=== PATIENT | male | born 1970 | race Caucasian/White ===

== ENCOUNTER 2024-06-06 06:28 | Day surgery (SDC) | payer OTHER, SELFPAY ==
[2024-06-06] VITALS (7 sets, daily range): BP systolic 96–107; BP diastolic 65–77; BMI 27.9
== END 2024-06-06 13:00 | disposition home or self-care (01) ==
LOC: SDS 06:28
PROVIDERS: ATTENDING PHYSICIAN Urology; FAMILY PHYSICIAN Family Medicine
DX: Z45.42 Encounter for adjustment and management of neurostimulator (principal); R15.9 Full incontinence of feces
CPT/HCPCS: 64595; 64585; 72170; 76000

== ENCOUNTER → 2024-08-26 09:37 | Outpatient (REF) | payer OTHER, SELFPAY | LOC: RAD 09:37 | PROVIDERS: ATTENDING PHYSICIAN Physical Medicine & Rehabilitation | DX: M54.12 Radiculopathy, cervical region (principal) | CPT/HCPCS: 72052 ==

== ENCOUNTER → 2024-11-07 07:45 | Outpatient (REF) | payer OTHER, SELFPAY | LOC: RAD 07:45 | DX: M54.12 Radiculopathy, cervical region (principal); Z98.1 Arthrodesis status | CPT/HCPCS: 72040 ==

== ENCOUNTER → 2025-02-16 15:29 | Outpatient (REF) | payer OTHER, SELFPAY | LOC: RAD 15:29 | PROVIDERS: ATTENDING PHYSICIAN Orthopaedic Surgery; FAMILY PHYSICIAN Family Medicine | DX: M54.12 Radiculopathy, cervical region (principal) | CPT/HCPCS: 72040 ==

== ENCOUNTER → 2025-04-14 08:15 | Outpatient (REF) | payer OTHER, SELFPAY | LOC: RCS 08:15 | PROVIDERS: ATTENDING PHYSICIAN Internal Medicine Interventional Cardiology; FAMILY PHYSICIAN Family Medicine | DX: R93.1 Abnormal findings on diagnostic imaging of heart and coronary circulation (principal); R06.09 Other forms of dyspnea | CPT/HCPCS: 93306 ==

== ENCOUNTER → 2025-05-31 08:10 | Outpatient (REF) | payer OTHER, SELFPAY | LOC: HWRCS 08:10 | PROVIDERS: ATTENDING PHYSICIAN Internal Medicine Interventional Cardiology; FAMILY PHYSICIAN Family Medicine | DX: R93.1 Abnormal findings on diagnostic imaging of heart and coronary circulation (principal); R06.09 Other forms of dyspnea | CPT/HCPCS: 78452; 93017; A9500; J2785 ==